=== PATIENT | female | born 1970 | race Caucasian/White ===

== ENCOUNTER 2017-08-11 07:49 | Emergency (ER) | payer OTHER, MEDICAID ==
[~2017-08-11] VITALS: Ht 157.5 cm; Wt 108.9 kg
[~2017-08-11 07:49] MED LIST: AMRIX15 MG; CARAFATE 1 GM TA1 GM PO; CYMBALTA30 MG; DYRENIUM100 MG; LEVOTHYROXINE100 MC1 PO; LISINOPRIL5 MG; MELOXICAM7.5 MG; NORCO 5-325 TA1 EACH PO; PEPCID20 MG PO; PHENERGAN 25 MG25 M1 PO; PHENERGAN25 M2 RC; ZOFRAN 4 MG ORAL4 M1 DIS; ZOFRAN ODT4 MG SUBLING
[2017-08-11] MEDS ORDERED: ZANAFLEX4 MG PO (07:56)
[2017-08-11] MEDS ORDERED: PROTONIX40 M1 PO (07:56)
[2017-08-11 08:42] LABS: ABSOLUTE BASOPHILS 0.1 thou/uL (0.0-0.2); ABSOLUTE EOSINOPHILS 0.4 thou/uL (0.0-0.7); ABSOLUTE LYMPHOCYTES 1.9 thou/uL (0.8-5.3); ABSOLUTE MONOCYTES 0.5 thou/uL (0.0-1.2); ABSOLUTE NEUTROPHILS 5.5 thou/uL (1.6-8.1); BASOPHILS 0.7 %; EOSINOPHILS 4.8 %; HEMATOCRIT 34.8 % (37.0-47.0); HEMOGLOBIN 10.8 gm/dL (12.0-15.0); LYMPHOCYTES 22.4 %; MCH 21.1 pg (26.0-34.0); MCHC 30.9 g/dL (28.0-37.0); MCV 68.1 fL (80.0-100.0); MONOCYTES 6.2 %; MPV 8.5 fl. (7.2-11.1); NUCLEATED RBCS 0 /100WBC; PLATELET COUNT* 359 thou/uL (150-400); POLYS 65.9 %; RBC 5.11 mil/uL (4.20-5.00); RDW-CV 17.5 % (10.5-14.5); WBC 8.3 thou/uL (4.0-11.0)
[2017-08-11 08:57] LABS: ANION GAP 5 mmol/L (7-16); BUN 18 mg/dL (7-18); CALCIUM 9.3 mg/dL (8.5-10.1); CHLORIDE 102 mmol/L (98-107); CO2 33 mmol/L (21-32); CREATININE 0.6 mg/dL (0.6-1.3); GLUCOSE 115 mg/dL (70-99); SODIUM 140 mmol/L (136-145)
[2017-08-11 08:58] LABS: POTASSIUM 2.9 mmol/L (3.5-5.1)
[2017-08-11 09:04] LABS: ALBUMIN 3.5 g/dL (3.4-5.0); ALKALINE PHOSPHATASE 69 U/L (46-116); LIPASE 91 U/L (73-393); SGOT 10 U/L (15-37); SGPT 15 U/L (30-65); TOTAL BILIRUBIN 0.3 mg/dL (<0.1-1.0); TOTAL PROTEIN 7.7 g/dL (6.4-8.2); TROPONIN-I LEVEL <0.06 ng/mL (<0.06)
[2017-08-11 09:53] LABS: ANISOCYTOSIS 1+; PLATELET ESTIMATE ADEQUATE
[2017-08-11 09:54] LABS: HYPOCHROMASIA 2+; OVALOCYTES Occasional
[2017-08-11 09:56] LABS: MICROCYTES 2+
[2017-08-11] MEDS ORDERED: CARAFATE 1 GM TA1 GM PO (11:26)
[2017-08-11] MEDS ORDERED: ZOFRAN ODT4 MG PO (11:26)
[2017-08-11 11:34] VITALS: BP 152/63
--- NOTE | 2017-08-11 11:53 | EKG ---
[place] [address] ELECTROCARDIOGRAM REPORT Name: BRAXTON ESCOBEDO Room: [facility]#: [id number] Admission: 08/11/17 Attend Phys: Discharge: 08/11/17 Date of : 72 Report #: [id number] THIS REPORT FOR: //name// [facility] ED Test Date: 2017-08-11 Test Time: 07:52:02 Pat Name: BRAXTON ESCOBEDO Department: Room: Gender: F Electronic Pagination System Operator: YOLANDA : 1970 Requested By: Shanna Garcia Order Number: [id number] MD: Abel Woods Measurements Intervals [place] Rate: 63 P: 22 ND: 167 QRS: 16 QRSD: 101 T: 21 QT: 403 QTc: 413 Interpretive Statements Sinus rhythm Compared to ECG 09/17/2016 04:21:43 No significant changes Electronically Signed On 08-11-2017 11:53:38 CDT by Abel Woods [email or web address] <ELECTRONICALLY SIGNED> By: Abel Woods MD, [facility] 08/11/17 1153 0752 075 Abel Woods MD, FACC /EPI
== END 2017-08-11 11:35 | disposition home or self-care (01) ==
LOC: M.ERS 07:49
PROVIDERS: Personal Emergency Response Attendant
DX: K81.9 Cholecystitis, unspecified (principal); I10 Essential (primary) hypertension; E03.9 Hypothyroidism, unspecified; Z88.5 Allergy status to narcotic agent

== ENCOUNTER 2017-10-11 05:55 | Emergency (ER) | payer OTHER, MEDICAID ==
[~2017-10-11] VITALS: Ht 157.5 cm; Wt 114.3 kg
[~2017-10-11 05:55] MED LIST changes: +PROTONIX40 M1 PO; +ZANAFLEX4 MG PO; +ZOFRAN ODT4 MG PO
[2017-10-11 06:53] LABS: ABSOLUTE BASOPHILS 0.1 thou/uL (0.0-0.2); ABSOLUTE EOSINOPHILS 0.4 thou/uL (0.0-0.7); ABSOLUTE LYMPHOCYTES 1.8 thou/uL (0.8-5.3); ABSOLUTE MONOCYTES 0.6 thou/uL (0.0-1.2); ABSOLUTE NEUTROPHILS 6.5 thou/uL (1.6-8.1); BASOPHILS 0.7 %; EOSINOPHILS 4.4 %; HEMATOCRIT 34.5 % (37.0-47.0); HEMOGLOBIN 10.7 gm/dL (12.0-15.0); LYMPHOCYTES 19.4 %; MCHC 31.1 g/dL (28.0-37.0); MCV 67.4 fL (80.0-100.0); MONOCYTES 6.4 %; MPV 8.6 fl. (7.2-11.1); NUCLEATED RBCS 0 /100WBC; PLATELET COUNT* 377 thou/uL (150-400); POLYS 69.1 %; RBC 5.12 mil/uL (4.20-5.00); WBC 9.3 thou/uL (4.0-11.0)
[2017-10-11 07:05] LABS: ANION GAP 10 mmol/L (7-16); BUN 14 mg/dL (7-18); CALCIUM 9.2 mg/dL (8.5-10.1); CHLORIDE 102 mmol/L (98-107); CO2 28 mmol/L (21-32); CREATININE 0.7 mg/dL (0.6-1.3); GLUCOSE 122 mg/dL (70-99); POTASSIUM 3.3 mmol/L (3.5-5.1); SODIUM 140 mmol/L (136-145)
[2017-10-11 07:09] LABS: ALBUMIN 3.6 g/dL (3.4-5.0); ALKALINE PHOSPHATASE 67 U/L (46-116); LIPASE 85 U/L (73-393); SGOT 9 U/L (15-37); SGPT 16 U/L (30-65); TOTAL BILIRUBIN 0.5 mg/dL (<0.1-1.0); TROPONIN-I LEVEL <0.06 ng/mL (<0.06)
[2017-10-11] MEDS ORDERED: PHENERGAN 25 MG25 M1 PO (07:41)
[2017-10-11] MEDS ORDERED: PERCOCET 5-3251 EACH PO (07:41)
[2017-10-11 08:11] LABS: ANISOCYTOSIS 1+; HYPOCHROMASIA 2+
[2017-10-11 08:12] LABS: MICROCYTES 3+; PLATELET ESTIMATE ADEQUATE
[2017-10-11 08:29] VITALS: BP 188/81
--- NOTE | 2017-10-11 12:42 | EKG ---
[place] [address] ELECTROCARDIOGRAM REPORT Name: BRAXTON ESCOBEDO Room: [facility]#: [id number] Admission: 10/11/17 Attend Phys: Discharge: 10/11/17 Date of : 72 Report #: [id number] THIS REPORT FOR: //name// [facility] ED Test Date: 2017-10-11 Test Time: 06:00:49 Pat Name: BRAXTON ESCOBEDO Department: Room: Gender: F Machine Clothing Man: DAVID : 1970 Requested By: Marcio Davidson Order Number: [id number] MD: Clayton Lamas Measurements Intervals [place] Rate: 80 P: 12 [place]: 159 QRS: 23 QRSD: 99 T: 11 QT: 379 QTc: 438 Interpretive Statements Sinus rhythm Compared to ECG 08/11/2017 07:52:02 No significant changes Electronically Signed On 10-11-2017 12:42:32 CDT by Clayton Lamas [email or web address] <ELECTRONICALLY SIGNED> By: Clayton Lamas MD, [facility] 10/11/17 1242 D: 07/599 9 Clayton Lamas MD, FACC /EPI
== END 2017-10-11 08:30 | disposition home or self-care (01) ==
LOC: M.ERS 05:55
PROVIDERS: Emergency Medicine Emergency Medical Services
DX: K80.50 Calculus of bile duct without cholangitis or cholecystitis without obstruction (principal); I10 Essential (primary) hypertension; E03.9 Hypothyroidism, unspecified; Z88.5 Allergy status to narcotic agent

== ENCOUNTER 2020-01-29 10:45 | Emergency (ER) | payer OTHER, MEDICAID ==
[~2020-01-29] VITALS: Ht 157.5 cm; Wt 99.8 kg
[~2020-01-29 10:45] MED LIST changes: +PERCOCET 5-3251 EACH PO
[2020-01-29] MEDS ORDERED: COZAAR 25 MG TA25 M1 PO (10:55)
[2020-01-29 12:08] LABS: ABSOLUTE EOSINOPHILS 0.1 thou/uL (0.0-0.7); ABSOLUTE LYMPHOCYTES 1.3 thou/uL (0.8-5.3); ABSOLUTE MONOCYTES 0.6 thou/uL (0.0-1.2); ABSOLUTE NEUTROPHILS 8.5 thou/uL (1.6-8.1); BASOPHILS 0.4 %; EOSINOPHILS 1.3 %; HEMOGLOBIN 14.2 gm/dL (12.0-15.0); LYMPHOCYTES 12.6 %; MCH 26.6 pg (26.0-34.0); MCHC 32.3 g/dL (28.0-37.0); MCV 82.3 fL (80.0-100.0); NUCLEATED RBCS 0 /100WBC; PLATELET COUNT* 343 thou/uL (150-400); POLYS 79.7 %; RBC 5.34 mil/uL (4.20-5.00); RDW-CV 16.2 % (10.5-14.5); WBC 10.7 thou/uL (4.0-11.0)
[2020-01-29 12:19] LABS: URINE BLOOD 1+ (Negative); URINE CLARITY CLEAR; URINE GLUCOSE-RANDOM NEGATIVE (Negative); URINE KETONES NEGATIVE (Negative); URINE LEUKOCYTES-REFLEX NEGATIVE (Negative); URINE NITRITE-REFLEX NEGATIVE (Negative); URINE PROTEIN 1+ (Negative); URINE SPECIFIC GRAVITY 1.025 (1.005-1.030); URINE UROBILINOGEN 0.2 E.U./dl (0.2-1.0)
[2020-01-29 12:26] LABS: CALCIUM 8.1 mg/dL (8.5-10.1); CREATININE 0.8 mg/dL (0.6-1.3); POTASSIUM 3.1 mmol/L (3.5-5.1)
[2020-01-29 12:28] LABS: ICTOTEST (BILI CONFIRMATORY) Negative (Negative); URINE BILIRUBIN 1+ (Negative)
[2020-01-29 12:29] LABS: URINE COLOR H
[2020-01-29 12:30] LABS: ALBUMIN 3.7 g/dL (3.4-5.0); TOTAL BILIRUBIN 0.5 mg/dL (<0.1-1.0); TOTAL PROTEIN 8.5 g/dL (6.4-8.2)
[2020-01-29 12:32] LABS: BACTERIA-REFLEX >30 Many /HPF (None Seen); CASTS None Seen /LPF (None Seen); CRYSTALS None Seen /LPF (None Seen); MUCUS 4-6 Moderate strn/LPF (None Seen); SQUAMOUS >10 Many /LPF (0-3); URINE RBC 0-2 Rare /HPF (0-2); URINE WBC-REFLEX 0-5 Rare /HPF (0-5)
[2020-01-29] MEDS ORDERED: ONDANSETRON ODT4 MG PO (14:45)
[2020-01-29] MEDS ORDERED: CIPRO500 MG PO (14:45)
[2020-01-29] MEDS ORDERED: HYDROCODON-ACE1 EAC7 PO (14:50)
[2020-01-29 14:56] VITALS: BP 148/97
--- NOTE | 2020-01-30 14:06 | EKG ---
[place] [address] ELECTROCARDIOGRAM REPORT Name: BRAXTON ESCOBEDO Room: [facility]#: [id number] Admission: 01/29/20 Attend Phys: Discharge: 01/29/20 Date of : 72 Date of Service: 01/29/20 1203 Report #: [id number] THIS REPORT FOR: //name// [facility] ED Test Date: 2020-01-29 Test Time: 12:03:34 Pat Name: BRAXTON ESCOBEDO Department: Room: Gender: F Survey Cad Technician: [facility] : 1970 Requested By: Drew Hughes Order Number: [id number] MD: Wilian James Measurements Intervals [place] Rate: 80 P: 17 NC: 154 QRS: 4 QRSD: 95 T: 50 QT: 392 QTc: 453 Interpretive Statements Sinus rhythm Left ventricular hypertrophy, by voltage Compared to ECG 10/11/2017 06:00:49 Left ventricular hypertrophy now present Electronically Signed On 01-30-2020 14:06:03 BEHAVIORAL HEALTH DIRECTOR by Wilian James [email or web address] <ELECTRONICALLY SIGNED> By: Wilian James MD, FAC 01/30/20 1406 1203 1203 Wilian James MD, [facility] /EPI
== END 2020-01-29 15:00 | disposition home or self-care (01) ==
LOC: M.ERS 10:45
PROVIDERS: Family Medicine
DX: R10.13 Epigastric pain (principal); R10.84 Generalized abdominal pain; R10.31 Right lower quadrant pain; R11.2 Nausea with vomiting, unspecified; I10 Essential (primary) hypertension; E03.9 Hypothyroidism, unspecified; Z90.49 Acquired absence of other specified parts of digestive tract; Z88.5 Allergy status to narcotic agent